=== PATIENT | female | born 1960 | race Caucasian/White ===

== ENCOUNTER 2016-09-22 07:20 | Day surgery (SDC) | payer MEDICAID ==
[~2016-09-22 07:20] MED LIST: DEXAMETHASONE 10 MG/ML VIAL IVP ONE; OXYMETAZOLINE 30 ML NASAL SPRAY EACHNARE SCH; ceFAZolin 2 GM/DEXTROSE 100 ML IV ONE
[2016-09-22] MEDS ORDERED: fentaNYL 250 MCG/5 ML INJ ONE (07:45)
[2016-09-22] MEDS ORDERED: PROPOFOL/EMULSION 500 MG/50 ML BOTTLE IV ONE (07:46)
[2016-09-22] MEDS ORDERED: WATER FOR INJ.,BACTERIOSTATIC 30 ML MDV ONE (07:58)
[2016-09-22] MEDS ORDERED: LIDO/EPI 1% **Not for Epidural 20 ML MDV ONE (07:59)
[2016-09-22] MEDS ORDERED: LIDOCAINE 1% 5 ML SDV ID PRN (08:04)
[2016-09-22] MEDS ORDERED: LR 1,000 ML IV ONE (08:04)
[2016-09-22] MEDS ORDERED: OXYMETAZOLINE 30 ML NASAL SPRAY ONE (08:15)
[2016-09-22] MEDS ORDERED: DEXAMETHASONE 10 MG/ML VIAL ONE (08:15)
[2016-09-22] MEDS ORDERED: FAMOTIDINE 20 MG/2 ML SDV ONE (08:42)
[2016-09-22] MEDS ORDERED: MIDAZOLAM 2 MG/2 ML VIAL ONE (08:42)
[2016-09-22] MEDS ORDERED: REMIFENTANIL HCL 1 MG VIAL ONE (08:46)
[2016-09-22] MEDS ORDERED: ONDANSETRON 4 MG/2 ML VIAL ONE (09:39)
[2016-09-22] MEDS ORDERED: ROCURONIUM 50 MG/5 ML VIAL ONE (09:39)
[2016-09-22] MEDS ORDERED: fentaNYL 100 MCG/2 ML INJ ONE (12:40)
--- NOTE | 2016-09-22 13:21 | GOP ---
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 ANESTHESIA: General endotracheal. PREOPERATIVE DIAGNOSIS: 1. Deviated nasal septum with prior history of septoplasty. 2. Nasal valve stenosis, internal. 3. Bilateral maxillary chronic sinusitis. 4. Bilateral chronic sinusitis of the ethmoids. 5. Bilateral turbinate hypertrophy refractory to medical management. POSTOPERATIVE DIAGNOSIS: PROCEDURE PERFORMED: 1. Revision septoplasty. 2. Left maxillary antrostomy with tissue removal. 3. Right maxillary antrostomy without tissue removal. 4. Bilateral anterior ethmoidectomy. 5. Cortés nasal valve repair. 6. Bilateral submucous resection of inferior turbinates. 7. Excision of bilateral mariano bullosa. FINDINGS: SPECIMENS: Bilateral sinus contents. ESTIMATED BLOOD LOSS: Less than 20 cc. INDICATIONS: The patient is a 56-year-old female who has a history of chronic nasal obstruction. S he had a prior history of a septoplasty, but persistent deviation anterior to the right as well as c hronic nasal obstruction that responded mostly to a caudal maneuver. Preoperative CT scanning also demonstrated chronic sinusitis worse in the left maxillary and anterior ethmoid cavities. Risks, be nefits, and alternatives of the above procedures were discussed, and it was decided to proceed forwa rd. DESCRIPTION OF PROCEDURE: The patient was met in preoperative holding, and informed consent was con firmed. The patient was brought to the operating room. She underwent induction of general anesthes ia and placement of endotracheal tube without difficulty. She was rotated 180 degrees to the operat ing surgeon, positioned, prepped and draped in the standard fashion. I examined her nose with the 0 degree rigid endoscope. The nasal valve was tight, mostly on the right, partially due to the anter ior septal deflection as well as the upper lateral cartilage collapse. The left side was mostly at the level of the internal nasal valve with the cartilage superiorly. I was able to visualize both m iddle turbinates, and each were infiltrated with a total of 3 cc of 1% lidocaine with 1:100,000 epin ephrine. I began on the left side. The mariano bullosa was bisected with a 15-blade scalpel, and th en the lateral portion was removed using a combination of Silas-Cut straight cut biting forceps as wel l as endoscopic scissors. This revealed the uncinate process, and it was bisected using a back-biti ng elevator, and the superior portion was teased away from the eye and then removed using a biting B lakesley forceps. This opened the frontal recess. elevator was then used to enter the l eft maxillary os, and return of some purulence was noted immediately. A large maxillary antrostomy was then created using both Silas-Cut forceps as well as the microdebrider. Polypoid tissue around th e Ver[place] cell on the left side was removed with the microdebrider, and additional purulence was also removed. Anterior ethmoidectomy was performed, starting at the hiatus semilunaris superioris, working my way medially, interiorly to superolaterally to the level of the basal lamella. I then turned my attenti on to the right side. The mariano bullosa was again bisected with the 15 blade scalpel, and the late ral portion was removed using the Silas-Cut forceps as well as the endoscopic scissors. The uncinate process was then bisected using the back-biting forceps, and the superior portion was teased away fr om the eye and removed with an upbiting [place]akesley, and the inferior portion was downfractured, and t he large maxillary antrostomy was created using both Silas-Cut forceps as well as a microdebrider. Th ere was no soft tissue to remove or purulence on the right side. Anterior ethmoidectomy was then pe rformed starting at the hiatus semilunaris superioris, starting inferiorly medially to superolateral ly to the level of the basal lamella. At this point, I turned my attention to the septum without the endoscope. The majority of the issue was to the right and anterior at the level of the nasal valve. I palpated the area, and there was somewhat of a paucity of cartilage anteriorly, and I located what appeared to be 2 layers of cartila ge sandwiched in a [id number] fashion, creating a wider septum than necessary, and the right port ion of the cartilage was then removed. This significantly improved the nasal airway, and a mattress stitch was then applied to this resected area. Posterior to this was all soft tissue and scar that had been previously removed. There was still adequate tip support with the remaining anterior cart ilage, however. Next, Cortés nasal valve repair was undertaken. The internal nasal valve was infiltrated with additio nal lidocaine with epinephrine, and the apex of the nasal valve at the level of the caudal edge of t he upper lateral cartilage was then incised with a 15 blade scalpel and 2 mm of mucosa on the right and the left was removed. The upper lateral caudal edge was then dissected and resected using the C onverse scissors. The nasal valve was then sewn together imbricating and creating a wider and more patent nasal airway. Next, 2 mm microdebrider was then utilized to perform a submucous resection of each inferior turbina te. This was performed all the way to the level of the choana including both bone and soft tissue. Each inferior turbinate was then outfractured as well. At this point, the sinuses were then reexam ined, and any excess blood and clot from both the middle meatus as well as the nasopharynx was sucti oned away, and Stammberger foam was then applied as a hemostatic stent. At the end of this procedure, all sponge, needle, and instrument counts were correct. I personally performed all portions of this case. FLUIDS: 1 L of crystalloid. /[id number]/MODL
== END 2016-09-22 14:15 | disposition home or self-care (01) ==
LOC: FSGY 07:20
PROVIDERS: ATTEND Otolaryngology
PROC: 095L0ZZ Destruction of Nasal Turbinate, Open Approach (ICD-10-PCS; principal; 2016-09-22 08:45)
PROC: 09CQ4ZZ Extirpation of Matter from Right Maxillary Sinus, Percutaneous Endoscopic Approach (ICD-10-PCS; principal; 2016-09-22 08:45)
PROC: 090K0ZZ Alteration of Nasal Mucosa and Soft Tissue, Open Approach (ICD-10-PCS; principal; 2016-09-22 08:45)
PROC: 09BU4ZZ Excision of Right Ethmoid Sinus, Percutaneous Endoscopic Approach (ICD-10-PCS; principal; 2016-09-22 08:45)
PROC: 09BV4ZZ Excision of Left Ethmoid Sinus, Percutaneous Endoscopic Approach (ICD-10-PCS; principal; 2016-09-22 08:45)
PROC: 09BR4ZZ Excision of Left Maxillary Sinus, Percutaneous Endoscopic Approach (ICD-10-PCS; principal; 2016-09-22 08:45)
PROC: 09BM0ZZ Excision of Nasal Septum, Open Approach (ICD-10-PCS; principal; 2016-09-22 08:45)
DX: J34.2 Deviated nasal septum (principal); J34.89 Other specified disorders of nose and nasal sinuses; J32.0 Chronic maxillary sinusitis; J34.3 Hypertrophy of nasal turbinates; B19.20 Unspecified viral hepatitis C without hepatic coma; Z72.0 Tobacco use
CPT/HCPCS: J0690; J2250; J2405; J2704; J3010